=== PATIENT | female | born 1980 | race Caucasian/White ===

== ENCOUNTER 2019-09-14 07:03 | Emergency (ER) | payer BC ==
[2019-09-14 07:27] VITALS: BP 110/69
[2019-09-14] MEDS ORDERED: Ketorolac INJ* 30 MG/ML 1 ML VIAL IM ONE (07:45)
--- NOTE | 2019-09-14 07:45 | UC ---
Hip/Pelvis Pain - HPI Summary HPI Summary: 39 yo female with hx psoriatic arthritis presents with sudden onset of severe hip and buttock pain last PM after working out at the gym no relief with tramadol hurts to sit/wt bear and move - History Of Current Complaint Chief Complaint: UCLowerExtremity Stated Complaint: LT HIP PAIN Time Seen by Provider: 09/14/19 07:40 Hx Obtained From: Patient Hx Last Menstrual Period: 09/04/19 Onset/Duration: Sudden Onset, Lasting Hours Timing: Constant Severity Initially: Severe Severity Currently: Severe Pain Intensity: 9 Pain Scale Used: 0-10 Numeric Character Of Pain: Aching, Throbbing, Spasmodic, Stiffness Aggravating Factor(s): Movement, Weight Bearing Alleviating Factor(s): Nothing Associated Signs And Symptoms: Positive: Negative Female Torso: 1 - pain 2 - pain - Allergies/Home Medications Allergies/Adverse Reactions: Allergies Allergy/AdvReac Type Severity Reaction Status Date / Time loratadine [From Claritin] Allergy Anxiety Verified 09/14/19 07:23 Home Medications: Home Medications diphenhydrAMINE HCl [Zzzquil] 50 mg PO ONCE 09/14/19 [History Confirmed 09/14/19 ] PMH/Surg Hx/FS Hx/Imm Hx Previously Healthy: Yes - Surgical History Surgical History: Yes Surgery Procedure, Year, and Place: , [place]; Oral Skin Graft, [place] - Family History Known Family History: Positive: Hypertension, Diabetes - Social History Alcohol Use: Occasionally Substance Use Type: None Smoking Status (MU): Light Every Day Tobacco Smoker Type: Cigarettes Amount Used/How Often: 11/09 PPD Have You Smoked in the Last Year: Yes Household Exposure Type: Cigarettes Review of Systems All Other Systems Reviewed And Are Negative: Yes Constitutional: Positive: Negative Skin: Positive: Negative Eyes: Positive: Negative ENT: Positive: Negative Respiratory: Positive: Negative Cardiovascular: Positive: Negative Gastrointestinal: Positive: Negative Genitourinary: Positive: Negative Motor: Positive: Negative Neurovascular: Positive: Negative Musculoskeletal: Positive: Myalgia Neurological: Positive: Negative Psychological: Positive: Negative Physical Exam Triage Information Reviewed: Yes Appearance: Well-Appearing Vital Signs: Initial Vital Signs Temp 98.1 F 09/14/19 07:21 Pulse 74 09/14/19 07:21 Resp 16 09/14/19 07:21 BP 110/69 09/14/19 07:21 Pulse Ox 99 09/14/19 07:21 Vital Signs Reviewed: Yes Eyes: Positive: Conjunctiva Clear ENT: Positive: Hearing grossly normal, Uvula midline. Negative: Nasal congestion, Nasal drainage, Trismus, Muffled voice, Hoarse voice Dental Exam: Normal Neck: Positive: Supple, Nontender, No Lymphadenopathy Respiratory: Positive: Lungs clear, Normal breath sounds, No respiratory distress, No accessory muscle use Cardiovascular: Positive: RRR, No Murmur Abdomen Description: Positive: Nontender Musculoskeletal: Positive: Other: - left hip: no pain with axial compress, pain with ext rotation Neurological: Positive: Alert Psychological Exam: Normal Skin Exam: Normal Diagnostics - Radiology No standard instances Radiology Interpretation Completed By: Radiologist Summary of Radiographic Findings: 1. MILD BILATERAL OSTEOARTHRITIC CHANGE IN THE HIPS. 2. BONY CONFIGURATION WHICH WOULD PREDISPOSE TO CAM TYPE FEMORAL ACETABULAR IMPINGEMENT. Hip Injury Course/Dx - Differential Dx/Diagnosis Provider Diagnosis: Piriformis syndrome of left side Discharge ED - Sign-Out/Discharge Documenting (check all that apply): Patient Departure All imaging exams completed and their final reports reviewed: Yes - Discharge Plan Condition: Stable Disposition: HOME Prescriptions: HYDROcodone/ACETAMIN 5-325 MG* [[place] 5-325 TAB*] 1 tab PO Q4H PRN #10 tab MDD 3 PRN Reason: Pain - Severe Patient Education Materials: Piriformis Syndrome (ED) Referrals: Sandra Chun MD [Primary Care Provider] - As Soon As Possible Amber Srivastava MD [Medical Doctor] - As Soon As Possible (or Dr. Omalley. Ask for a [email or web address] appt. [email or web address]) Additional Instructions: 1. MILD BILATERAL OSTEOARTHRITIC CHANGE IN THE HIPS. 2. BONY CONFIGURATION WHICH WOULD PREDISPOSE TO CAM TYPE FEMORAL ACETABULAR IMPINGEMENT. pt consult - Billing Disposition and Condition Condition: STABLE Disposition: Home
== END 2019-09-14 09:04 | disposition home or self-care (01) ==
LOC: UCCORT 07:03
DX: G57.02 Lesion of sciatic nerve, left lower limb (principal); M16.0 Bilateral primary osteoarthritis of hip; F17.210 Nicotine dependence, cigarettes, uncomplicated; L40.50 Arthropathic psoriasis, unspecified; Z88.8 Allergy status to other drugs, medicaments and biological substances
CPT/HCPCS: 99212; G0463; J1885